=== PATIENT | female | born 1935 | race Caucasian/White ===

== ENCOUNTER 2020-08-31 15:09 | Inpatient (IN) ==
[2020-08-31 21:40] LABS: ABG Base Excess 4.6 MMOL/L (-2.5-2.5); ABG HCO3 31.3 MMOL/L (20-26); ABG Oxygen Saturation 90.4 % (95-100); ABG PCO2 59.7 MM HG (35-48); ABG PH 7.337 (7.35-7.45); ABG PO2 62.9 MM HG (80-95); ABG TCO2 33.1 MMOL/L (23-27); Allen Test Positive
[2020-08-31 22:04] LABS: Basophils % 0.2 % (0.0-0.8); Eosinophils % 0.2 % (0.00-10.9); Hematocrit 32.7 VOL% (35.7-47.0); Immature Granulocytes % 2.3 %; Immature Granulocytes Absolute 0.24 #; Lymphocytes # 0.6 10*3/uL (1.4-4.0); Lymphocytes % 5.9 % (21.3-54.2); Mean Corpuscular HGB Conc 24.5 GM/DL (32-36); Monocytes % 7.5 % (1.7-12.7); NRBC # 0.66 10*3/uL; Neutrophils % 83.9 % (38.7-73.9); Platelet Count 101 T/CUMM (130-400); Red Blood Count 4.54 MC/CUMM (3.8-5.5); Red Cell Distribution Width 21.3 % (9.3-17.3); White Blood Count 10.4 T/CUMM (4-12)
[2020-08-31 22:06] LABS: Calcium 8.5 MG/DL (8.5-10.1); Osmolality,Calculated 309.1 MOS/KG (273-304); Potassium 4.7 MMOL/L (3.5-5.1)
[2020-08-31] MEDS ORDERED: DOCUSATE SODIUM 100 MG CAPSULE PO PRN (23:01)
[2020-08-31] MEDS ORDERED: ALBUTEROL 2.5 MG/3 ML NEB RESP TX PRN (23:01)
[2020-08-31] MEDS ORDERED: SIMETHICONE CHEW 125 MG TABLET PO PRN (23:01)
[2020-08-31] MEDS ORDERED: GLUCAGON 1 MG VIAL IM PRN (23:01)
[2020-08-31] MEDS ORDERED: ONDANSETRON 4 MG/2 ML VIAL IV PRN (23:01)
[2020-08-31] MEDS ORDERED: ALBUTEROL/IPRATROPIUM 3 ML NEB RESP TX PRN (23:01)
[2020-08-31] MEDS ORDERED: DEXTROSE 50% 25 GM/50 ML VIAL IV PRN (23:01)
[2020-08-31] MEDS ORDERED: ACETAMINOPHEN 325 MG TABLET PO PRN (23:01)
[2020-09-01] MEDS: ALBUTEROL/IPRATROPIUM 3 ML NEB RESP TX SCH ×6 (03:50→23:41)
[2020-09-01 04:37] LABS: Basophils % 0.3 % (0.0-0.8); Eosinophils # 0.1 10*3/uL (0.0-0.87); Eosinophils % 0.5 % (0.00-10.9); Hematocrit 34.3 VOL% (35.7-47.0); Immature Granulocytes Absolute 0.21 #; Lymphocytes # 1.1 10*3/uL (1.4-4.0); Lymphocytes % 10.5 % (21.3-54.2); Mean Corpuscular HGB Conc 23.6 GM/DL (32-36); Mean Corpuscular Volume 74.1 FL (87-102); NRBC # 0.42 10*3/uL; Neutrophils % 77.7 % (38.7-73.9); Platelet Count 94 T/CUMM (130-400); Red Blood Count 4.63 MC/CUMM (3.8-5.5); Red Cell Distribution Width 21.6 % (9.3-17.3); White Blood Count 10.8 T/CUMM (4-12)
[2020-09-01 04:38] LABS: Hemoglobin 8.1 GM/DL (12.0-16.0)
[2020-09-01 04:38] LABS: ABG Base Excess 6.6 MMOL/L (-2.5-2.5); ABG HCO3 33.3 MMOL/L (20-26); ABG Oxygen Saturation 95.6 % (95-100); ABG PH 7.348 (7.35-7.45); ABG PO2 82.7 MM HG (80-95); ABG TCO2 35.2 MMOL/L (23-27); Allen Test Positive; Pt O2 Delivery Device BIPAP
[2020-09-01 04:52] LABS: Hypochromasia 1+; Microcytosis 1+; Platelet Estimate Decreased; Polychromasia Slight; Stomatocytes Slight
[2020-09-01 05:18] LABS: Albumin 2.5 G/DL (3.4-5.0); Bilirubin,Total 0.5 MG/DL (0.2-1.0); Calcium 8.8 MG/DL (8.5-10.1); Osmolality,Calculated 306.7 MOS/KG (273-304); Potassium 4.5 MMOL/L (3.5-5.1); Thyroid Stimulating Hormone 0.736 uIU/ml (0.358-3.74); Total Protein 6.3 G/DL (6.4-8.2)
[2020-09-01] MEDS: INSULIN REGULAR 100 UNIT/ML SUBCUT SCH ×4 (07:57→21:02)
[2020-09-01] MEDS: AMIODARONE 200 MG TABLET PO SCH (08:51)
[2020-09-01] MEDS: NIACIN ER 500 MG TABLET PO SCH (08:51)
[2020-09-01] MEDS: MAGNESIUM OXIDE 400 MG TABLET PO SCH (08:52)
[2020-09-01] MEDS: GLIMEPIRIDE 2 MG TABLET PO SCH (08:52)
[2020-09-01] MEDS: METOPROLOL SUCCINATE XL 100 MG TABLET PO SCH (08:52)
[2020-09-01] MEDS: LEVOTHYROXINE 88 MCG TABLET PO SCH (08:52)
[2020-09-01] MEDS: PANTOPRAZOLE 40 MG TABLET PO SCH (08:53)
[2020-09-01] MEDS: ASPIRIN EC 81 MG TABLET PO SCH (08:53)
[2020-09-01] MEDS: DILTIAZEM CD 120 MG CAPSULE PO SCH (08:53)
[2020-09-01] MEDS: metOLazone 5 MG TABLET PO SCH (08:53)
[2020-09-01] MEDS: FUROSEMIDE 40 MG/4 ML VIAL IV SCH ×2 (08:54→16:05)
[2020-09-01] MEDS ORDERED: APIXABAN 2.5 MG TABLET PO SCH (09:00)
[2020-09-01 09:27] LABS: Bacteria,Urine Occasional /HPF (Few); Bilirubin,Urine Negative (Negative); Blood, Urine Negative (Negative); Glucose,Urine (UA) Negative (Negative); Hyaline Casts,Urine 1 /LPF (0-3); Ketones,Urine Negative (Negative); Mucus,Urine Occasional /LPF (Occasional); Nitrite,Urine Negative (Negative); Protein,Urine Negative; RBC,Urine 1 /HPF (0-4); Squamous Epithelial Cell,Urine Occasional /HPF (0-10); Urine Appearance CLEAR (Clear); Urine Color Yellow (Yellow); Urine Specific Gravity 1.015 (1.001-1.035); Urine Urobilinogen < 2.0 EU/DL (0.2-1.0)
[2020-09-01] MEDS: APIXABAN 2.5 MG TABLET PO SCH (20:59)
[2020-09-01] MEDS ORDERED: CETIRIZINE 10 MG TABLET PO SCH (21:00)
[2020-09-01] MEDS ORDERED: rOPINIRole 1 MG TABLET PO SCH (21:00)
[2020-09-01] MEDS ORDERED: SIMVASTATIN 20 MG TABLET PO SCH (21:00)
[2020-09-02] MEDS: ALBUTEROL/IPRATROPIUM 3 ML NEB RESP TX SCH ×4 (03:20→14:04)
[2020-09-02 04:17] LABS: Calcium 8.7 MG/DL (8.5-10.1); Osmolality,Calculated 302.8 MOS/KG (273-304); Potassium 4.2 MMOL/L (3.5-5.1)
[2020-09-02 04:39] LABS: Basophils % 0.1 % (0.0-0.8); Eosinophils % 0.4 % (0.00-10.9); Hematocrit 32.6 VOL% (35.7-47.0); Immature Granulocytes % 1.3 %; Immature Granulocytes Absolute 0.12 #; Lymphocytes # 0.9 10*3/uL (1.4-4.0); Lymphocytes % 9.8 % (21.3-54.2); Mean Corpuscular HGB Conc 24.5 GM/DL (32-36); Monocytes % 10.4 % (1.7-12.7); NRBC # 0.17 10*3/uL; Red Blood Count 4.53 MC/CUMM (3.8-5.5); Red Cell Distribution Width 21.6 % (9.3-17.3); White Blood Count 9.4 T/CUMM (4-12)
[2020-09-02 04:40] LABS: Platelet Count 87 T/CUMM (130-400)
[2020-09-02 04:55] LABS: Hypochromasia 2+; Microcytosis 2+; Ovalocytes 1+; Platelet Estimate Decreased
[2020-09-02] MEDS: INSULIN REGULAR 100 UNIT/ML SUBCUT SCH ×3 (07:21→16:47)
[2020-09-02] MEDS: NIACIN ER 500 MG TABLET PO SCH (08:51)
[2020-09-02] MEDS: METOPROLOL SUCCINATE XL 100 MG TABLET PO SCH (08:51)
[2020-09-02] MEDS: LEVOTHYROXINE 88 MCG TABLET PO SCH (08:52)
[2020-09-02] MEDS: DILTIAZEM CD 120 MG CAPSULE PO SCH (08:52)
[2020-09-02] MEDS: APIXABAN 2.5 MG TABLET PO SCH (08:52)
[2020-09-02] MEDS: AMIODARONE 200 MG TABLET PO SCH (08:53)
[2020-09-02] MEDS: FUROSEMIDE 40 MG/4 ML VIAL IV SCH ×2 (08:53→15:57)
[2020-09-02] MEDS: PANTOPRAZOLE 40 MG TABLET PO SCH (08:53)
[2020-09-02] MEDS: GLIMEPIRIDE 2 MG TABLET PO SCH (08:53)
[2020-09-02 09:12] VITALS: BP 134/53
[2020-09-02] MEDS: ASPIRIN EC 81 MG TABLET PO SCH (09:12)
[2020-09-02] MEDS: MAGNESIUM OXIDE 400 MG TABLET PO SCH (09:12)
[2020-09-02] MEDS: metOLazone 5 MG TABLET PO SCH (09:13)
== END 2020-09-02 17:40 | disposition home or self-care (01) | DRG 291 ==
LOC: SUATTDRO 20:35 → N.ICU 20:35
PROVIDERS: ADMIT Internal Medicine; ATTEND Internal Medicine